=== PATIENT | female | born 1990 | race Caucasian/White ===

== ENCOUNTER → 2019-03-30 | Day surgery (SDC) | payer OTHER ==
[~2019-03-30] MED LIST: CEFTRIAXONE SOD 1 GM/NS 50 ML 50 ML IV ONE; DEXAMETHASONE SOD PHOS INJ 4 MG/ML VIAL ONE; EQUATE SLEEP AID PO; FENTANYL CITRATE/PF 100MCG/2 ML INJ ONE; HYDROXYZINE HCL25 MG PO; IOPAMIDOL 610MG/1ML 300 MG/ML VIAL IV ONE; LIDOCAINE HCL 2% LOCAL INJ 5 ML SDV VIAL INJ ONE; METOCLOPRAMIDE HCL 10 MG/2ML VIAL ONE; MIDAZOLAM HCL 2 MG/2 ML VIAL ONE; OMEPRAZOLE40 MG PO; ONDANSETRON HCL INJ 2MG/ML 2ML 2 MG/ML VIAL ONE; PROPOFOL IV EMULSION 10 MG/ML 20 ML VIAL ONE; QUETIAPINE FUM100 MG PO; ROCURONIUM BROMIDE 10 MG/ML 5ML VIAL ONE; SEVOFLURANE INHAL SOLN 250 ML PEN BTL ONE; SUCCINYLCHOLINE 200 MG/10 ML SYR ONE
--- OUTSIDE RECORDS SUMMARY | 2019-03-30 05:22 | XMS REPORT ---
Author Author [facility] Address Unknown Phone Unavailable Care Team Providers Care Sleep Scientist Name Role Phone Unavailable Unavailable Payers Payer Name Policy Type Policy Number Effective Date Expiration Date Problems This patient has no known problems. Allergies, Adverse Reactions, Alerts Allergy Name Allergy Type Status Severity Reaction(s) Onset Date Inactive Date Treating Clinician Comments No Known Allergies DA Active U 2017-02-16 00:00:00 Medications This patient has no known medications.
--- OUTSIDE RECORDS SUMMARY | 2019-03-30 05:22 | XMS REPORT ---
Author Author Admin, [facility] [place] [address] [facility] [address] [place] [id number] Phone Allergies, Adverse Reactions, Alerts Allergy Name Reaction Description Start Date Severity Status Provider PENICILLIN nausea Mild Active Alek Simms MD Conditions or Problems Problem Name Problem Code Onset Date Status Entry Date Provider Comment Standard Description Annotate High risk medication management V58.69 Active Shahid Wilson MD Long-term (current) use of other medications Cyst, sebaceous 706.2 Active Garrett Quintana MD Sebaceous cyst Recurrent UTI 599.0 Active Garrett Quintana MD Urinary tract infection, site not specified UTI 599.0 Active Alek Simms MD Urinary tract infection, site not specified Flank pain, left 789.09 Active Alek Simms MD Abdominal pain, other specified site; multiple sites Dysuria 788.1 Active Garrett Quintana MD Dysuria Cervix, screening for malignant neoplasm V76.2 Active Garrett Quintana MD Screening for malignant neoplasms of the cervix 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 Active Garrett Quintana MD Special investigations and examinations - Gynecological examination Weight loss counseling V65.3 Active Alek Simms MD Dietary surveillance and counseling Generalized anxiety disorder 300.02 Active Shahid Wilson MD Generalized anxiety disorder Pulmonary embolism 415.19 Active Alek Simms MD Other pulmonary embolism and infarction Bipolar disorder, unspecified 296.80 Active Shahid Wilson MD Bipolar disorder, unspecified Dysmenorrhea 625.3 Active Garrett Quintana MD Dysmenorrhea Follicular cyst of left ovary Active Garrett Quintana MD Menorrhagia 626.2 Active Garrett Quintana MD Excessive or frequent menstruation Pelvic pain 625.9 Active Garrett Quintana MD Unspecified symptom associated with female genital organs BMI 39.0-39.9 Active Alek Simms MD Body Mass Index 39.0-39.9, adult GERD 530.81 Active Alek Simms MD Esophageal reflux Insomnia 780.52 Active Alek Simms MD Insomnia, unspecified Obesity Active Alek Simms MD Obesity, unspecified Other ovarian cyst, left side Active Alek Simms MD per CT scan report Vaginal irritation ICD-623.9 Inactive Alek Simms MD Acute upper respiratory infection ICD-465.9 Inactive Alek Simms MD Major depressive disorder, recurrent episode, severe, without mention of psychotic behavior 296.33 Inactive Shahid Wilson MD Major depressive disorder, recurrent episode, severe degree, without mention of psychotic behavior Depression/anxiety ICD-300.4 Inactive Shahid Wilson MD Vaginal irritation 623.9 Resolved Alek Simms MD Unspecified noninflammatory disorder of vagina Acute upper respiratory infection 465.9 Resolved Alek Simms MD Acute upper respiratory infections of unspecified site Depression/anxiety 300.4 Resolved Shahid Wilson MD Dysthymic disorder Medication List Medication Instructions Start Date Stop Date Generic Name NDC Status Provider Patient Instruction HYDROXYZINE HCL 25 MG ORAL TABLET 1 tablet By Mouth Three Times a Day As Needed anxiety HYDROXYZINE HCL 31793544293 Active Shahid Wilson MD Active QUETIAPINE FUMARATE ER 150 MG ORAL TABLET EXTENDED RELEASE 24 HOUR 1 tab By Mouth qdaily for mood QUETIAPINE FUMARATE 08544234631 Active Shahid Wilson MD Active OMEPRAZOLE 40 MG ORAL CAPSULE DELAYED RELEASE Take 1 By Mouth Every Day OMEPRAZOLE 17449948413 Active Stephanie [facility] Active FLUOXETINE HCL 10 MG CAPSULE TAKE ONE CAPSULE BY MOUTH EVERY DAY IN THE MORNING FLUOXETINE HCL 10 MG CAPSULE 471880 FLUOXETINE HCL Inactive RESTORIL 7.5 MG ORAL CAPSULE 1 cap By Mouth take at bedtime As Needed insomnia RESTORIL 7.5 MG ORAL CAPSULE 726806 TEMAZEPAM Inactive TRAZODONE HCL 100 MG ORAL TABLET 1/2 to 1 tab By Mouth take at bedtime for sleep TRAZODONE HCL 100 MG ORAL TABLET 697813 TRAZODONE HCL Inactive PHENAZOPYRIDINE HCL 200 MG ORAL TABLET 1 tab By Mouth Three Times a Day x 2 days PHENAZOPYRIDINE HCL 200 MG ORAL TABLET 4099811 PHENAZOPYRIDINE HCL Inactive TERCONAZOLE 0.4 % VAGINAL CREAM 1 applicator per vagina once a night for 7 days TERCONAZOLE 0.4 % VAGINAL CREAM 118135 TERCONAZOLE Inactive QUETIAPINE ER 300 MG TABLET TAKE 1 TABLET BY MOUTH AT BEDTIME FOR MOOD QUETIAPINE ER 300 MG TABLET QUETIAPINE FUMARATE Inactive FLAGYL 500 MG ORAL TABLET 1 Tab PO BID x 7 Days FLAGYL 500 MG ORAL TABLET 976358 METRONIDAZOLE Inactive KEFLEX 500 MG ORAL CAPSULE 1 by mouth twice a day for 10 days KEFLEX 500 MG ORAL CAPSULE 213884 CEPHALEXIN Inactive LAMICTAL 25 MG ORAL TABLET Take 1 tab By Mouth Every Morning for one week, then increase to 1 tab By Mouth Twice a Day for mood LAMICTAL 25 MG ORAL TABLET 805243 LAMOTRIGINE Inactive VIIBRYD 20 MG ORAL TABLET 1 tab By Mouth qdaily for depression VIIBRYD 20 MG ORAL TABLET VILAZODONE HCL Inactive WELLBUTRIN XL 150 MG ORAL TABLET EXTENDED RELEASE 24 HOUR 1 tab By Mouth Every Morning for depression WELLBUTRIN XL 150 MG ORAL TABLET EXTENDED RELEASE 24 HOUR BUPROPION HCL Inactive XARELTO TABLET XARELTO TABLET RIVAROXABAN TABS Inactive AMITRIPTYLINE HCL 25 MG ORAL TABLET 2 tab by mouth nightly at bedtime AMITRIPTYLINE HCL 25 MG ORAL TABLET 948696 AMITRIPTYLINE HCL Inactive ESCITALOPRAM OXALATE 20 MG ORAL TABLET 1 tab By Mouth Every day ESCITALOPRAM OXALATE 20 MG ORAL TABLET 023478 ESCITALOPRAM OXALATE Inactive IBUPROFEN 800 MG ORAL TABLET 1 pill every 6 hours By Mouth prn IBUPROFEN 800 MG ORAL TABLET 285272 IBUPROFEN Inactive LOESTRIN FE 1/20 1-20 MG-MCG ORAL TABLET 1 pill daily po LOESTRIN FE 1/20 1-20 MG-MCG ORAL TABLET 6756697 NORETHIN ALLAN-ETH ESTRAD-FE Inactive ESCITALOPRAM OXALATE 10 MG ORAL TABLET 1 tab By Mouth Every day ESCITALOPRAM OXALATE 10 MG ORAL TABLET 713844 ESCITALOPRAM OXALATE Inactive TRAZODONE HCL 50 MG ORAL TABLET 1 by mouth nightly at bedtime TRAZODONE HCL 50 MG ORAL TABLET 336177 TRAZODONE HCL Inactive CLONAZEPAM 1 MG TABS TAKE 1/2 - 1 TABLET BY MOUTH EVERY DAY AT BEDTIME CLONAZEPAM 1 MG TABS 535138 CLONAZEPAM Inactive FLUOXETINE HCL 10 MG CAPSULE TAKE ONE CAPSULE BY MOUTH EVERY DAY IN THE MORNING FLUOXETINE HCL 32560614831 No Longer Active Shahid Wilson MD Active RESTORIL 7.5 MG ORAL CAPSULE 1 cap By Mouth take at bedtime As Needed insomnia TEMAZEPAM 08429351025 No Longer Active Shahid Wilson MD Active TRAZODONE HCL 100 MG ORAL TABLET 1/2 to 1 tab By Mouth take at bedtime for sleep TRAZODONE HCL 21812538200 No Longer Active Shahid Wilson MD Active PHENAZOPYRIDINE HCL 200 MG ORAL TABLET 1 tab By Mouth Three Times a Day x 2 days PHENAZOPYRIDINE HCL 25324731260 No Longer Active Alek Simms MD Active TERCONAZOLE 0.4 % VAGINAL CREAM 1 applicator per vagina once a night for 7 days TERCONAZOLE 06336389971 No Longer Active Garrett Quintana MD Active QUETIAPINE ER 300 MG TABLET TAKE 1 TABLET BY MOUTH AT BEDTIME FOR MOOD QUETIAPINE FUMARATE 18324577957 No Longer Active Shahid Wilson MD Active FLAGYL 500 MG ORAL TABLET 1 Tab PO BID x 7 Days METRONIDAZOLE 33315192682 No Longer Active Garrett Quintana MD Active KEFLEX 500 MG ORAL CAPSULE 1 by mouth twice a day for 10 days CEPHALEXIN 20862940683 No Longer Active Alek Simms MD Active LAMICTAL 25 MG ORAL TABLET Take 1 tab By Mouth Every Morning for one week, then increase to 1 tab By Mouth Twice a Day for mood LAMOTRIGINE 28803589192 No Longer Active Shahid Wilson MD Active VIIBRYD 20 MG ORAL TABLET 1 tab By Mouth qdaily for depression VILAZODONE HCL 59283939763 No Longer Active Shahid Wilson MD Active WELLBUTRIN XL 150 MG ORAL TABLET EXTENDED RELEASE 24 HOUR 1 tab By Mouth Every Morning for depression BUPROPION HCL 64603658995 No Longer Active Shahid Wilson MD Active XARELTO TABLET RIVAROXABAN TABS 47249690573 No Longer Active Alek Simms MD Active AMITRIPTYLINE HCL 25 MG ORAL TABLET 2 tab by mouth nightly at bedtime AMITRIPTYLINE HCL 87381882913 No Longer Active Shahid Wilson MD Active ESCITALOPRAM OXALATE 20 MG ORAL TABLET 1 tab By Mouth Every day ESCITALOPRAM OXALATE 67535325573 No Longer Active Shahid Wilson MD Active IBUPROFEN 800 MG ORAL TABLET 1 pill every 6 hours By Mouth prn IBUPROFEN 64191731440 No Longer Active Garrett Quintana MD Active LOESTRIN FE 10/29 1-20 MG-MCG ORAL TABLET 1 pill daily po NORETHIN ALLAN-ETH ESTRAD-FE 19534531357 No Longer Active Alek Simms MD Active ESCITALOPRAM OXALATE 10 MG ORAL TABLET 1 tab By Mouth Every day ESCITALOPRAM OXALATE 14925279311 No Longer Active Alek Simms MD Active NEXIUM 40 MG ORAL CAPSULE DELAYED RELEASE 1 by mouth daily ESOMEPRAZOLE MAGNESIUM 18682688188 No Longer Active Alek Simms MD Active TRAZODONE HCL 50 MG ORAL TABLET 1 by mouth nightly at bedtime TRAZODONE HCL 28736901886 No Longer Active Alek Simms MD Active CLONAZEPAM 1 MG TABS TAKE 1/2 - 1 TABLET BY MOUTH EVERY DAY AT BEDTIME CLONAZEPAM 64799151069 No Longer Active Shahid Wilson MD Active Vital Signs Date Name Value Unit Range Description blood pressure, diastolic 78 mm[Hg] BP escobar blood pressure, systolic 112 mm[Hg] BP sys height E&M 60 [in_us] Bdy height pulse rate E&M 99 /min Heart rate weight E&M 197.38 [lb_av] Weight Measured blood pressure, diastolic 79 mm[Hg] BP escobar blood pressure, systolic 108 mm[Hg] BP sys height E&M 60 [in_us] Bdy height pulse rate E&M 98 /min Heart rate respiratory rate E&M 16 /min Resp rate weight E&M 200 [lb_av] Weight Measured blood pressure, diastolic 80 mm[Hg] BP escobar blood pressure, systolic 118 mm[Hg] BP sys height E&M 60 [in_us] Bdy height pulse rate E&M 102 /min Heart rate respiratory rate E&M 17 /min Resp rate temperature E&M 98.5 [degF] Body temperature weight E&M 198.40 [lb_av] Weight Measured blood pressure, diastolic 82 mm[Hg] BP escobar blood pressure, systolic 122 mm[Hg] BP sys height E&M 60 [in_us] Bdy height pulse rate E&M 94 /min Heart rate weight E&M 206.40 [lb_av] Weight Measured blood pressure, diastolic 70 mm[Hg] BP escobar blood pressure, systolic 105 mm[Hg] BP sys height E&M 60 [in_us] Bdy height pulse rate E&M 95 /min Heart rate respiratory rate E&M 16 /min Resp rate temperature E&M 98.5 [degF] Body temperature weight E&M 207 [lb_av] Weight Measured blood pressure, diastolic 76 mm[Hg] BP escobar blood pressure, systolic 125 mm[Hg] BP sys height E&M 60 [in_us] Bdy height pulse rate E&M 97 /min Heart rate weight E&M 208 [lb_av] Weight Measured blood pressure, diastolic 72 mm[Hg] BP escobar blood pressure, systolic 108 mm[Hg] BP sys pulse rate E&M 93 /min Heart rate respiratory rate E&M 16 /min Resp rate weight E&M 208.38 [lb_av] Weight Measured blood pressure, diastolic 82 mm[Hg] BP escobar blood pressure, systolic 133 mm[Hg] BP sys height E&M 60 [in_us] Bdy height pulse rate E&M 66 /min Heart rate respiratory rate E&M 17 /min Resp rate temperature E&M 98 [degF] Body temperature weight E&M 206.13 [lb_av] Weight Measured blood pressure, diastolic 76 mm[Hg] BP escobar blood pressure, systolic 122 mm[Hg] BP sys height E&M 60 [in_us] Bdy height pulse rate E&M 98 /min Heart rate respiratory rate E&M 16 /min Resp rate temperature E&M 98.3 [degF] Body temperature weight E&M 211 [lb_av] Weight Measured blood pressure, diastolic 78 mm[Hg] BP escobar blood pressure, systolic 122 mm[Hg] BP sys height E&M 60 [in_us] Bdy height pulse rate E&M 111 /min Heart rate weight E&M 214.40 [lb_av] Weight Measured Diagnostic Results Date Name Value Unit Range Description Lab Report: TSH Rfx on Abnormal to Free T4 - Chemistry thyroid stimulating hormone, serum 3.430 u[iU]/mL 0.450-4.500 Office Visit: Acute Visit - Chemistry beta HCG, urine, semiquantitative negative Lab Report: CBC With Differential/Platelet, Comp. Metabolic Panel (14), ... - Chemistry very low density lipoproteins 31 mg/dL 5-40 chloride, serum 102 mmol/L 96-106 urea nitrogen, blood 9 mg/dL 6-20 Office Visit: Acute Visit RM 1 UTI - Urinalysis leukocyte esterase, urine, by dipstick negative Lab Report: CBC With Differential/Platelet, Comp. Metabolic Panel (14), ... - Hematology mean corpuscular hemoglobin concentration, RBC 32.8 G/DL % 31.5-35.7 erythrocyte (RBC) count 4.90 X10E6/UL 10*6/mm3 3.77-5.28 Office Visit: Acute Visit RM 1 UTI - Urinalysis nitrite, urine, semiquantitative negative urine color yellow Lab Report: CBC With Differential/Platelet, Comp. Metabolic Panel (14), ... - Chemistry Absolute Neutrophils 6.7 X10E3/UL 10*3/uL 1.4-7.0 Office Visit: Acute Visit RM 1 UTI - Urinalysis bilirubin, urine negative Lab Report: CBC With Differential/Platelet, Comp. Metabolic Panel (14), ... - Chemistry LDL cholesterol, serum 63 mg/dL 0-99 urea nitrogen/creatinine ratio, serum 13 9-23 Lab Report: CBC With Differential/Platelet, Comp. Metabolic Panel (14), ... - Hematology mean corpuscular volume, RBC 75 fL 79-97 Internal Correspondence: Pre-Visit Planning - CC care team leader #1, name Lili Hansen Lab Report: CBC With Differential/Platelet, Comp. Metabolic Panel (14), ... - Chemistry HDL cholesterol, serum 39 mg/dL >39 Lab Report: CBC With Differential/Platelet, Comp. Metabolic Panel (14), ... - Hematology monocytes as percent of blood leukocytes 8 % Not Estab. Lab Report: CBC With Differential/Platelet, Comp. Metabolic Panel (14), ... - Chemistry albumin/globulin ratio, serum 1.9 1.2-2.2 creatinine, serum 0.67 mg/dL 0.57-1.00 Lab Report: Vaginitis/Vaginosis, DNA Probe - Urinalysis trichomonas vaginalis, urine Negative Negative Lab Report: CBC With Differential/Platelet, Comp. Metabolic Panel (14), ... - Chemistry cholesterol, serum 133 mg/dL 291-896 7354/06/07 bilirubin, serum, total <0.2 mg/dL mg/dL 0.0-1.2 Lab Report: Pap IG, rfx HPV ASCU - Lab Human Papillomavirus test result HPVNotTested Lab Report: CBC With Differential/Platelet, Comp. Metabolic Panel (14), ... - Hematology Eosinophil Absolute Count 0.3 X10E3/UL 10*3/uL 0.0-0.4 Office Visit: Acute Visit RM 1 UTI - Urinalysis appearance, urine clear blood in urine (hemoglobin) by dipstick negative Lab Report: Ct, Ng, Trich vag by CATIE - Lab chlamydia DNA probe Negative Negative Lab Report: CBC With Differential/Platelet, Comp. Metabolic Panel (14), ... - Chemistry aspartate aminotransferase (SGOT), serum 18 U/L 0-40 Lab Report: CBC With Differential/Platelet, Comp. Metabolic Panel (14), ... - Hematology red blood cell distribution width 16.1 % 12.3-15.4 leukocyte count, blood 10.5 X10E3/UL 10*3/mm3 3.4-10.8 Office Visit: Acute Visit RM 1 UTI - Urinalysis pH, urine, semiquantitative 5.0 Lab Report: CBC With Differential/Platelet, Comp. Metabolic Panel (14), ... - Chemistry potassium, serum 4.5 mmol/L 3.5-5.2 albumin, serum 4.5 g/dL 3.5-5.5 immature granulocytes, percentage of total cells, blood 0 % Not Estab. Lab Report: CBC With Differential/Platelet, Comp. Metabolic Panel (14), ... - Hematology lymphocyte count, blood, automated 2.7 X10E3/UL 10*3/mm3 0.7-3.1 hematocrit, blood 36.9 % 34.0-46.6 Lab Report: Ct, Ng, Trich vag by CATIE - Microbiology Neisseria gonorrhoeae DNA probe Negative Negative Lab Report: CBC With Differential/Platelet, Comp. Metabolic Panel (14), ... - Chemistry sodium, serum 139 mmol/L 134-144 Lab Report: Urine Culture, Routine, Result - Urinalysis urine culture No growth Lab Report: CBC With Differential/Platelet, Comp. Metabolic Panel (14), ... - Hematology neutrophils as percent of blood leukocytes 63 % Not Estab. basophils as percent of blood leukocytes 1 % Not Estab. Internal Correspondence: Pre-Visit Planning - Other List of providers caring for patient Lili Starr and Olga Merchant Office Visit: Acute Visit RM 1 UTI - Urinalysis protein, urine, semiquantitative (dipstick) negative Lab Report: CBC With Differential/Platelet, Comp. Metabolic Panel (14), ... - Chemistry carbon dioxide, venous blood 21 mmol/L 20-29 triglyceride, serum, fasting 154 mg/dL 0-149 calcium, serum 9.2 mg/dL 8.7-10.2 alanine aminotransferase (SGPT), serum 28 U/L 0-32 Lab Report: CBC With Differential/Platelet, Comp. Metabolic Panel (14), ... - Hematology mean corpuscular hemoglobin, RBC 24.7 pg 26.6-33.0 Office Visit: Acute Visit RM 1 UTI - Urinalysis specific gravity, urine 1.005 Lab Report: CBC With Differential/Platelet, Comp. Metabolic Panel (14), ... - Chemistry protein, total, serum 6.9 g/dL 6.0-8.5 alkaline phosphatase, serum 60 U/L 39-117 Lab Report: CBC With Differential/Platelet, Comp. Metabolic Panel (14), ... - Hematology hemoglobin, blood 12.1 g/dL 11.1-15.9 lymphocytes as percent of blood leukocytes 26 % Not Estab. Office Visit: Acute Visit RM 1 UTI - Urinalysis glucose, urine, semiquantitative negative Lab Report: CBC With Differential/Platelet, Comp. Metabolic Panel (14), ... - Genetics/fertility eGFR if 138 mL/min/1.73m2 >59 Lab Report: CBC With Differential/Platelet, Comp. Metabolic Panel (14), ... - Hematology basophil count, absolute 0.1 x10E3/uL 0.0-0.2 Lab Report: CBC With Differential/Platelet, Comp. Metabolic Panel (14), ... - Chemistry globulin, serum 2.4 1.5-4.5 Estimated Glomerular Filtration Rate (calc) 120 mL/min/1.73m2 >59 Lab Report: CBC With Differential/Platelet, Comp. Metabolic Panel (14), ... - Hematology eosinophils as percent of blood leukocytes 2 % Not Estab. Lab Report: CBC With Differential/Platelet, Comp. Metabolic Panel (14), ... - Chemistry blood glucose, random 95 mg/dL 65-99 Office Visit: Acute Visit RM 1 UTI - Urinalysis urobilinogen, urine, semiquantitative (dipstick) negative Lab Report: CBC With Differential/Platelet, Comp. Metabolic Panel (14), ... - Hematology monocyte count, blood, automated 0.8 X10E3/UL 10*3/uL 0.1-0.9 platelet count 387 X10E3/UL 10*3/mm3 150-450 Office Visit: Acute Visit RM 1 UTI - Urinalysis ketones, urine, by test strip negative Encounters Date Encounter Provider Code Facility 13:02:50 CDT Est Patient Exp Problem - 49831 Shahid Wilson MD CPT-09411 [facility] 14:48:56 CDT Est Patient Exp Problem - 32787 Garrett Quintana MD CPT-90247 [place] [employer] 10:05:53 TELECOMMUNICATIONS ANALYST Est Patient Exp Problem - 06777 Garrett Quintana MD CPT-97689 [place] [facility] 12:34:08 TELECOMMUNICATIONS ANALYST Est Patient Exp Problem - 69895 Shahid Wilson MD CPT-15542 [facility] 11:12:19 CDT Est Patient Exp Problem - 76653 Alek Simms MD CPT-42476 [facility] 09:56:36 CDT Est Patient Exp Problem - 51988 Shahid Wilson MD CPT-76577 [facility] 15:11:40 CDT Est Patient Exp Problem - 57456 Garrett Quintana MD CPT-58264 [place] [facility] 12:28:39 CDT Est Patient Exp Problem - 76529 Garrett Quintana MD CPT-09350 [place] [facility] 11:26:45 CDT Est Patient Exp Problem - 79871 Shahid Wilson MD CPT-82953 [facility] 11:49:00 CDT Est Patient Exp Problem - 95562 Shahid Wilson MD CPT-68690 [facility] 20:39:24 CDT Est Patient Exp Problem - 02826 Rachel Reina D.O. CPT-19597 [facility] 09:45:18 CDT Est Patient Exp Problem - 21989 Shahid Wilson MD CPT-04932 [facility] 10:29:15 TELECOMMUNICATIONS ANALYST Est Patient Detailed - 82719 Shahid Wilson MD CPT-05132 [facility] 16:24:24 TELECOMMUNICATIONS ANALYST Est Patient Exp Problem - 51314 Alek Simms MD CPT-99417 [facility] 13:57:53 TELECOMMUNICATIONS ANALYST Est Patient Detailed - 82676 Shahid Wilson MD CPT-00608 [facility] 12:55:00 CDT Est Patient Detailed - 32643 Shahid Wilson MD CPT-57250 [facility] 14:30:22 CDT Est Patient Detailed - 56767 Shahid Wilson MD CPT-22981 [facility] 09:13:23 CDT Est Patient Detailed - 65737 Shahid Wilson MD CPT-03582 [facility] 16:26:49 CDT Est Patient Exp Problem - 93551 Alek Simms MD CPT-72344 [facility] 15:39:18 CDT Est Patient Exp Problem - 97039 Alek Simms MD CPT-70863 [facility] 17:06:17 CDT New Patient Detailed - 93902 Garrett Quintana MD CPT-19054 [place] [employer] 16:39:58 CDT New Patient Exp Problem - 93289 Alek Simms MD CPT-52959 [facility] Procedures Code Procedure Name Date Entry Date Standard Description CPT-83914 Urinalysis - Dip only - In House 10:06:24 TELECOMMUNICATIONS ANALYST CPT-19160 Urinalysis - Dip only - In House 11:06:05 CDT CPT-67855 Urinalysis - Dip only - In House 12:28:42 CDT CPT-30925 Est Patient Well Exam (18 - 39 Yrs) - 07342 12:02:50 CDT CPT-69848 Rapid Strep - In House 20:39:24 CDT CPT-29604 Diagnostic evaluation (no medical) - 93725 10:26:25 TELECOMMUNICATIONS ANALYST CPT-89201 Diagnostic evaluation with medical - 76852 12:01:26 CDT CPT-40081 Psychotherapy 30 (16-37*) min - 54971 (with patient and/or family member) 12:02:36 CDT CPT-56924 Diagnostic evaluation (no medical) - 75812 16:40:39 CDT
--- NOTE | 2019-03-30 07:46 | Operative Report ---
DATE OF PROCEDURE: 03/30/2019 SURGEON: Stuart Noe MD PREOPERATIVE DIAGNOSES: 1. Multiple chronic urinary tract infections. 2. Clinical signs and symptoms of interstitial cystitis. POSTOPERATIVE DIAGNOSES: 1. Multiple chronic urinary tract infections. 2. Clinical signs and symptoms of interstitial cystitis. PROCEDURES: 1. Cystourethroscopy with hydrodistention (entirely separate procedure with clinical signs and symptoms of interstitial cystitis without hematuria). 2. Cystourethroscopy with left ureteral catheterization and left retrograde pyelogram (separate procedure for multiple urinary tract infections). 3. Cystourethroscopy with right ureteral catheterization and right retrograde pyelogram (separate procedure for multiple urinary tract infections). 4. Supervision of fluoroscopy. 5. Interpretation of retrograde pyelography. ANESTHESIA: General. ESTIMATED BLOOD LOSS: Minimal. COMPLICATIONS: None. INDICATIONS FOR PROCEDURE: Mrs. Winkler is a 28-year-old female with a history of multiple chronic urinary tract infections and clinical symptoms of interstitial cystitis. She and I had a long discussion about alternatives, the risks and benefits, including doing nothing, cystoscopy, IVP, retrograde pyelograms, renal ultrasound, hydrodistention. She voiced understanding of the options, alternatives, the risks and benefits and she elected to proceed with hydrodistention and retrograde pyelogram in order to avoid the nephrotoxic risk of dye. PROCEDURE IN DETAIL: After informed consent was obtained, the patient was taken to the operative suite. She was placed supine on the operating table. General anesthesia by Anesthesia Service. She was placed in the dorsal lithotomy position, sterilely prepped and draped in standard fashion for cystoscopy. A 21-British cystoscope was inserted per urethra and normal urethra was noted. Panendoscopy of bladder revealed no tumors and no stones. Both ureteral orifices were in normal anatomic location and position and were seen to efflux clear urine. Bilateral retrograde pyelogram was performed, which were normal. Hydrodistention was performed with a capacity of 800 mL, no glomerulations, no Hunner's ulcers. Bladder was drained and the patient was awakened from anesthesia and transported to the recovery room in excellent condition. Supervision of fluoroscopy, interpretation of retrograde pyelography: I was present for the entire procedure and I supervised the use of fluoroscopy. There was no radiologist present. Attention was turned towards the left and right ureteral orifices which were catheterized with an 8-British cone-tipped catheter. In retrograde fashion, contrast was injected revealing delicate ureters, delicate pelvocaliceal systems, no evidence of filling defects, no evidence of hydronephrosis. IMPRESSION: Normal retrograde pyelograms. MD BRENDA Shearer/YESSYL /[id number]
[2019-03-30 08:10] VITALS: BP 120/78
== END | disposition home or self-care (01) ==
LOC: OR 05:00
PROVIDERS: ATTEND Urology
DX: N39.0 Urinary tract infection, site not specified (principal); N13.39 Other hydronephrosis; R35.1 Nocturia; N39.3 Stress incontinence (female) (male); K21.9 Gastro-esophageal reflux disease without esophagitis; F31.9 Bipolar disorder, unspecified; F41.9 Anxiety disorder, unspecified; Z87.891 Personal history of nicotine dependence
CPT/HCPCS: 52005; 74420; 81025; C1758; J0696; J1100; J2001; J2250; J2405; J2704; J2765; Q9967; J3010